=== PATIENT | female | born 1960 | race Caucasian/White ===

== ENCOUNTER 2016-03-30 06:23 | Day surgery (SDC) | payer OTHER ==
[2016-03-29 11:22] VITALS: Ht 160 cm; Wt 118.0 kg
[~2016-03-30] VITALS: Ht 160 cm; Wt 118.0 kg
[2016-03-30] VITALS (8 sets, daily range): BP systolic 110–135; BP diastolic 67–87; PULSE 80–86; RESP 14–18
[~2016-03-30 06:23] MED LIST: ALBU8.5H3 INH; BENZ100C70 PO; IBUP-1542 PO; NITR-58 PO; NO HOME RX MEDS
--- NOTE | 2016-03-30 07:09 | RADRPT ---
PROCEDURE: XR Chest. CLINICAL INDICATION: Preoperative evaluation prior to general anesthesia TECHNIQUE: Portable single view of the chest COMPARISON: 08/23/2015 FINDINGS: The heart size is top normal. Again seen is mild pulmonary vascular congestion without definite int erstitial or alveolar edema. No focal infiltrate or pleural effusion. IMPRESSION: Mild pulmonary vascular congestion. No significant interval change. RPTAT: [facility] Physician Michelle Date Time Electronically viewed and signed by Nadine Shields Physician on 03/30/2016 07:09 COY/
[2016-03-30] MEDS ORDERED: LIDOCAINE 1% (MDV) 20 ML INJ ONE (07:11)
[2016-03-30] MEDS ORDERED: IODIXANOL LOCM 100 ML BTL ONE (07:11)
[2016-03-30] MEDS ORDERED: HEPARIN 1000 UNITS/ML 10 ML INJ ONE (07:12)
[2016-03-30] MEDS ORDERED: VERAPAMIL 5 MG INJ ONE (07:12)
[2016-03-30] MEDS ORDERED: NITROGLYCERIN (IC) 100 MCG/ML INJ ONE (07:12)
[2016-03-30] MEDS ORDERED: FENTAnyl 50 MCG/ML VIAL ONE (07:46)
[2016-03-30] MEDS ORDERED: MIDAZOLAM 1 MG/ML 2 ML INJ ONE (07:46)
[2016-03-30 07:55] LABS: INR 0.97; PROTIME 12.9 Sec (12.2-14.2)
[2016-03-30 07:56] LABS: PARTIAL THROMBOPLASTIN TIME 28.1 Sec (25.0-35.0)
[2016-03-30 07:57] LABS: POTASSIUM 4.2 mmol/L (3.5-5.1)
[2016-03-30 08:01] LABS: CHOL/HDL RATIO 5.1 RATIO
[2016-03-30 08:10] LABS: BASOPHILS % 0.5 % (0.0-2.0); CALCIUM 9.2 mg/dl (8.4-10.2); CREATININE 0.51 mg/dl (0.44-1.00); EOSINOPHILS # 0.3 10^3/ul (0.0-0.5); EOSINOPHILS % 3.1 % (0.0-7.0); HEMOGLOBIN 14.7 g/dl (12.0-16.0); LYMPHOCYTES # 1.5 10^3/ul (0.8-2.9); LYMPHOCYTES % 15.4 % (15.0-51.0); MEAN CORPUSCULAR HEMOGLOBIN 28.7 pg (29.0-33.0); MEAN CORPUSCULAR HGB CONC 34.2 g/dl (32.0-37.0); MEAN CORPUSCULAR VOLUME 84.1 fl (82.0-101.0); MEAN PLATELET VOLUME 9.8 fl (7.4-10.4); MONOCYTE # 0.5 10^3/ul (0.3-0.9); MONOCYTES % 5.1 % (0.0-11.0); NEUTROPHIL # 7.2 10^3/ul (1.6-7.5); NEUTROPHILS % 75.9 % (39.0-77.0); PLATELET COUNT 274 10^3/UL (140-440); RED BLOOD COUNT 5.11 10^6/ul (4.20-5.40); RED CELL DISTRIBUTION WIDTH 13.3 % (11.5-14.5); UNCORRECTED WBC 9.4 10^3/ul (4.8-10.8); WHITE BLOOD COUNT 9.4 10^3/ul (4.8-10.8)
[2016-03-30 08:12] LABS: CONDITION 1
[2016-03-30] MEDS ORDERED: MECL-77 PO (08:34)
[2016-03-30] MEDS ORDERED: BENA5TAB2 PO (08:34)
[2016-03-30] MEDS ORDERED: ALBU18HF INHALATION (08:34)
[2016-03-30] MEDS ORDERED: GLIP-95 PO (08:34)
[2016-03-30] MEDS ORDERED: IBUP800T25 PO (08:34)
[2016-03-30] MEDS ORDERED: SITA50TA2 PO (08:34)
[2016-03-30] MEDS ORDERED: ONDA4TAB95 SUBLINGUAL (08:34)
[2016-03-30] MEDS ORDERED: SOD CHLORIDE 0.9% 1,000 ML IV SCH (10:16)
[2016-03-30] MEDS ORDERED: ONDANSETRON 4 MG INJ IV PRN (10:30)
[2016-03-30] MEDS ORDERED: ACETAMINOPHEN 325 MG TAB PO PRN (10:30)
[2016-03-30] MEDS ORDERED: HOLD all METFORMIN and METFORMIN CONTAINING medications for 48 hours post procedure. Chec XX SCH (10:30)
[2016-03-30] MEDS ORDERED: AL HYDROX/MG HYDROX/SIMETH 30 ML CUP PO PRN (10:30)
--- NOTE | 2016-03-30 11:17 | CARRPT ---
DATE OF PROCEDURE: 03/30/2016 TYPE OF PROCEDURE: 1. Left heart catheterization. 2. Coronary angiography. 3. Measurement of left ventricular end-diastolic pressure. ATTENDING PHYSICIAN: Deion Doty MD REFERRING PHYSICIAN: Rahul Horowitz MD TYPE OF ANESTHESIA: Conscious and local. INDICATION: Chest pain refractory to medical therapy with positive stress test findings for anterio r ischemia, high-risk marker for cardiovascular events. BRIEF HISTORY: Ms. Zambrano is a 55-year-old female with history of hypertension, diabetes mellitus w ho initially presented with complaints of substernal chest pain. The patient subsequently had a car diac stress test revealing positive ischemia. Given these findings, the patient referred for and pr esents today in order to undergo left heart catheterization to assess for the possibility of signifi cant obstructive coronary artery disease lending to her symptoms of chest pain and positive stress t est findings. PROCEDURE: After informed consent was obtained, the patient was brought to the [facility] cardiac catheterization lab where the right radial area was prepped and draped in the usual sterile fashion. Lidocaine 2% was infiltrated into the right radial area in order to achieve adequ ate anesthesia. Using the modified Seldinger technique, the patient's radial artery was cannulated and a 6 [place] arterial sheath was placed. A 6 [place] JR4 catheter was used to cannulate the right coronary arterial ostium. With contrast injection, multiple views of the right coronary arterial sy stem were obtained. JR4 was removed over a guidewire and a 6 [place] JL3 was used to finally success fully cannulate the patient's left coronary artery after which contrast injection, multiple views of the left coronary arterial system were obtained. JL3 was removed over a guidewire, and as the JR h ad initially been used to measure left ventricular end-diastolic pressure and pullback across the ao rtic valve to assess for significant gradient. This completed the procedure. The patient's sheath was removed. The TR band was applied. There were no noted complications. Left ventricular end-diastolic pressure measured at 16 to 17. No significant aortic stenosis by gra dient. FINDINGS: 1. Coronary angiography: Left main 4 mm, no significant stenoses. Circumflex proximally 3.5 mm ve ssel with 20% stenosis. The remainder of the circumflex is free of significant focal stenoses, give s off a very sizable 3.5 mm obtuse marginal with no significant focal stenoses. a very small ramus branch, sub 2 mm vessel with luminal irregularities up to 10% to 20%. The LAD proximally is a 3.5 mm vessel and has an ostial 20% stenosis and a mid body 20% stenosis. The remainder of LAD is free of significant focal stenoses and goes around the apex. A proximal branching diagonal 2 mm ves fouzia with no significant focal stenoses. The right coronary artery proximally is a 3 mm vessel and i s free of significant focal stenoses throughout its entirety. It is a dominant vessel and gives off a 2 mm PDA and a 2 mm posterolateral branch with no significant focal stenoses. TOTAL FLUOROSCOPY TIME: 11.7 minutes. TOTAL CONTRAST: 70 mL. IMPRESSION: 1. Very mild nonobstructive coronary artery disease. 2. High normal left heart filling pressure 16 to 17. 3. No significant aortic stenosis by gradient. RECOMMENDATIONS: In light of procedure findings at this time would: 1. Maximize medical management. 2. Aggressive risk factor reduction. 3. The patient will be readmitted to the same day surgery center for post-catheterization observati on with probable discharge later this afternoon. 4. The patient is scheduled for followup appointment in our office at which time we will discuss re sults of this test and ensure that the patient has had no post-catheterization complications. Dictated By: DEION QUACH/YASHIRA Conf#: [id number] DID#: [id number]
--- NOTE | 2016-03-30 13:35 | RADRPT ---
Vent Rate: 82 bpm RR Interval: 0 msec VA Interval: 118 msec QRS Duration: 88 msec QT Interval: 390 msec QTC Interval: 455 msec P-R-T [place]: 5 - 46 - 31 degrees Normal sinus rhythm Normal ECG Electronically Signed By: Sina Vasquez [id number]
== END 2016-03-30 15:05 | disposition home or self-care (01) ==
LOC: SDS 06:23
PROVIDERS: ATTEND Internal Medicine
DX: I25.10 Atherosclerotic heart disease of native coronary artery without angina pectoris (principal); R94.39 Abnormal result of other cardiovascular function study
CPT/HCPCS: 71010; 80048; 80061; 82962; 85025; 85610; 85730; 93005; 93458; C1769; C1887; J1644; J2250; J3010; Q9967; Z7610

== ENCOUNTER 2016-06-18 17:41 | Emergency (ER) | payer SELFPAY ==
[~2016-06-18] VITALS: Wt 81.0 kg
[~2016-06-18 17:41] MED LIST changes: +ALBU18HF INHALATION; +BENA5TAB2 PO; -BENZ100C70 PO; +GLIP-95 PO; -IBUP-1542 PO; +IBUP800T25 PO; +MECL-77 PO; -NITR-58 PO; -NO HOME RX MEDS; +ONDA4TAB95 SUBLINGUAL; +SITA50TA2 PO
== END 2016-06-18 20:23 | disposition left against medical advice (07) ==
LOC: FTE 17:41
DX: Z53.21 Procedure and treatment not carried out due to patient leaving prior to being seen by health care provider (principal)

== ENCOUNTER 2017-09-21 07:48 | Inpatient (IN) | END 2017-09-22 11:50 | disposition home health service (06) | DRG 418 ==

== ENCOUNTER 2018-05-01 07:09 | Day surgery (SDC) | payer OTHER ==
--- NOTE | 2018-04-27 22:21 | PREOPHP ---
DATE OF ADMISSION: 05/01/2018 The patient is coming for dilatation and curretage and hysteroscopy on 05/01/2018. HISTORY OF PRESENT ILLNESS: This is a 57-year-old female, 1, para 1 with a history of diabet es and postmenopausal bleeding. The patient has been referred to me for this reason. History of end ometrial hyperplasia also diagnosed 6 years ago at which time she was advised for the same procedure which she refused and the patient did not come since 10/2017. Now, she is still bleeding. She has b een losing weight but ultrasound shows it is strictly hyperplasia of the endometrium for which a D an d C and hysteroscopy will be performed to rule out malignancy and to see if this is perimenopausal sy ndrome. We can use the endometrial ablation, if there is no malignancy involved. If there is malign jody involved, then we will not perform any ablation of the endometrium. If there are fibroids in th e cavity of the uterus, we may use the TruClear machine to clear them up or sometimes both machine. The patient had been controlled on her diabetes, losing weight but this has not helped. Past history is for laparoscopic cholecystectomy in 2018, appendectomy, anal fistula. She stated that she had he r last period around 53. She also has been having diabetes that has been uncontrolled at times. The patient also with repeated infections in the bladder. ALLERGIES: SHE IS ALLERGIC TO CODEINE. MEDICATIONS: 1. She is on metformin. 2. Insulin shots. FAMILY HISTORY: Hypertension, breast cancer and diabetes. At this time, this procedure is diagnostic and will follow ablation if it is necessary with either shala kumar pending on the pathology results of the frozen section. PHYSICAL EXAMINATION: GENERAL APPEARANCE: Good. VITAL SIGNS: Stable. Blood pressure 120/90, pulse is 80, she is afebrile. She weighs 155, she is 5 feet 3 inches. HEAD AND NECK: Normal. BREASTS: Soft, nontender, no masses. CHEST: Clear. HEART: Normal sinus rhythm. LUNGS: Clear. ABDOMEN: Soft, nontender, no masses. PELVIC: The external genitalia is normal. Uterus retroverted, hard to examine due to her obesity. EXTREMITIES: Normal. DIAGNOSES: 1. Endometrial hyperplasia. 2. Postmenopausal bleeding. 3. Partially controlled diabetes. 4. Vaginal atrophy. 5. Recurrent urinary tract infection. 6. Moniliasis. PLAN: She is undergoing a fractional D and C, hysteroscopy, possible ablation of the uterus. She main s been advised of the possible risks and possible complications of the procedure with her alternative s and options. Written information was provided. She had no more questions and agreed to go ahead w ith the procedure with full understanding and no more questions. Dictated By: BUNNY SALDANA/YASHIRA Conf#: [id number] DID#: [id number]
[2018-04-29 15:58] VITALS: Ht 160 cm; Wt 109.7 kg
[~2018-05-01] VITALS: Ht 160 cm; Wt 109.7 kg
[2018-05-01] VITALS (14 sets, daily range): BP systolic 116–133; BP diastolic 61–71; PULSE 66–84; RESP 10–24
[~2018-05-01 07:09] MED LIST changes: +ACETAMINOPHEN 500 MG TAB PO ONE; -ALBU18HF INHALATION; -ALBU8.5H3 INH; +ALBU8.5H8 INH; +BENA40TA56 PO; -BENA5TAB2 PO; +BUME1TAB PO; +CEFAZOLIN 1 GM INJ ONE; +DESFLURANE 15 MIN ONE; +DOCU-144 PO; -GLIP-95 PO; +GLIP10TA14 PO; -IBUP800T25 PO; -MECL-77 PO; +MTF1000T PO; -ONDA4TAB95 SUBLINGUAL; +OXYC-279 PO; +PIOG30TA12 PO; +RANI300T PO; +SITA100T11 PO; -SITA50TA2 PO
[2018-05-01] MEDS ORDERED: METF100010 PO (07:35)
[2018-05-01] MEDS ORDERED: ASPI81TA52 PO (07:35)
[2018-05-01] MEDS ORDERED: PROVENTIL HFA 6.7GM INHALER ONE (08:41)
[2018-05-01] MEDS ORDERED: MIDAZOLAM 1 MG/ML 2 ML INJ ONE (08:48)
[2018-05-01] MEDS ORDERED: LIDOCAINE 2% (SDV) 5 ML INJ ONE (08:48)
[2018-05-01] MEDS ORDERED: PROPOFOL 40 ML ONE (08:48)
[2018-05-01] MEDS ORDERED: ROCURONIUM 50 MG INJ ONE (08:48)
[2018-05-01] MEDS ORDERED: SUCCINYLCHOLINE CHLORIDE 100 MG/5 ML SYG IV ONE (08:48)
[2018-05-01] MEDS ORDERED: FENTAnyl 50 MCG/ML VIAL ONE (08:48)
[2018-05-01] MEDS ORDERED: FAMOTIDINE 20 MG INJ ONE (08:49)
[2018-05-01] MEDS ORDERED: METOCLOPRAMIDE 10 MG INJ ONE (08:49)
--- NOTE | 2018-05-01 09:03 | PREAC ---
Date/Time of Note Date/Time of Note DATE: 05/01/18 TIME: 09:01 Anesthesia Eval and Record Evaluation Time Pre-Procedure Interview DATE: 05/01/18 TIME: 09:01 Age 57 Sex female NPO: 8 hrs Preoperative diagnosis endometrial hyperplasia Planned procedure fractionated d&c hysteroscopy Past Medical History Past Medical History: Includes Endo: Diabetes Pulm: Asthma GI: Morbid obesity Surgery & Anesthesia Issues No known issue Meds Anticoagulation: No Beta Daisha within 24 hr: No Reason Beta Daisha not given: Pt. not on B-Daisha Reported Medications Aspirin (Low Dose Aspirin) 81 Mg Tablet.dr, 81 MG PO DAILY, #30 TAB 05/01/18 Metformin Hcl* (Metformin Hcl*) 1,000 Mg Tablet, 1000 MG PO WITH BREAKFAST DINNE, #60 TAB 05/01/18 Discontinued Reported Medications Ranitidine Hcl* (Ranitidine Hcl*) 300 Mg Tablet, 300 MG PO HS, #30 TAB 09/20/17 Pioglitazone Hcl* (Actos*) 30 Mg Tablet, 30 MG PO DAILY, #30 TAB 09/20/17 Bumetanide* (Bumetanide*) 1 Mg Tablet, 1 MG PO DAILY, TAB 09/20/17 Metformin* (Glucophage*) 1,000 Mg Tablet, 1000 MG PO BID, #60 TAB 09/20/17 Sitagliptin* (Januvia*) 100 Mg Tablet, 100 MG PO DAILY, #30 TAB 09/20/17 Glipizide* (Glipizide*) 10 Mg Tablet, 10 MG PO BID, TAB 09/20/17 Benazepril Hcl* (Benazepril Hcl*) 40 Mg Tablet, 40 MG PO DAILY, #30 TAB 09/20/17 Discontinued Scripts Albuterol Sulfate* (Proair HFA*) 8.5 Gm Hfa.aer.ad, 2 PUFF INH Q4H PRN for WHEEZING AND SOB, #1 INHALER Prov:POON,REAGAN V. KEY MAKER 09/22/17 Docusate Sodium* (Colace*) 100 Mg Capsule, 100 MG PO BID, #60 CAP Prov:POON,REAGAN V. KEY MAKER 09/22/17 Oxycodone HCl/Acetaminophen (Percocet 5-325 mg Tablet) 1 Each Tablet, 1 EACH PO Q6, #30 TAB Prov:POON,REAGAN V. KEY MAKER 09/22/17 Meds reviewed: Yes Allergies Coded Allergies: codeine (Verified Allergy, Mild, 05/01/18) Allergies Reviewed: Yes Labs/Studies Labs Reviewed: Reviewed by anesthesiologist test: Negative Studies: CXR (no active dz) Pre-procedure Exam Last vitals Vital Signs Date Temp Pulse Resp B/P (MAP) Pulse Ox O2 O2 Flow FiO2 Time Delivery Rate 05/01/18 97.4 84 16 133/61 99 Room Air 07:58 (85) Airway: Adequate mouth opening, Adequate thyromental dist Mallampati: Mallampati II Teeth: Normal Lung: Normal Heart: Normal ASA Physical Status ASA physical status: 3 Emergency: None Planned Anesthetic General/MAC: LMA Pre-operative Attestations Prior to commencing anesthesia and surgery, the patient was re-evaluated, there was verification of: *The patient's identity *The results of appropriate recent lab work and preoperative vital signs *The above evaluation not changing prior to induction *Anesthetic plan, risk benefits, alternative and complications discussed with patient/family; questions answered; patient/family understands, accepts and wishes to proceed. ASHWIN STEINBERG May 01, 2018 09:03
[2018-05-01] MEDS ORDERED: morphine (1 MG/ML) 10ML SYRINGE IV PRN ×2 (09:30)
[2018-05-01] MEDS ORDERED: FENTAnyl 50 MCG/ML VIAL IV PRN ×2 (09:30)
[2018-05-01] MEDS ORDERED: HYDROmorphONE 1 MG/5 ML IV SYRINGE IV PRN ×2 (09:30)
[2018-05-01] MEDS ORDERED: DIPHENHYDRAMINE 50 MG INJ IV PRN (09:30)
[2018-05-01] MEDS ORDERED: MEPERIDINE 25 MG INJ IV PRN (09:30)
[2018-05-01] MEDS ORDERED: ALBUTEROL 0.083% (NEB) 2.5 MG/3 ML AMP HHN PRN (09:30)
[2018-05-01] MEDS ORDERED: LABETALOL HCL 20MG INJ IV PRN (09:30)
[2018-05-01] MEDS ORDERED: ONDANSETRON 4 MG INJ IV PRN (09:30)
--- NOTE | 2018-05-01 11:01 | PD.PPDC ---
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
--- NOTE | 2018-05-01 11:07 | PAC ---
Date/Time of Note Date/Time of Note DATE: 05/01/18 TIME: 11:06 Post-Anesthesia Notes Post-Anesthesia Note Last documented vital signs Vital Signs Date Temp Pulse Resp B/P Pulse Ox O2 O2 Flow FiO2 Time (MAP) Delivery Rate 05/01/18 97.4 98.1 84 69 16 16 133/61 99 100 Room 07:58 110 (85) 122 Air face mask 6L Activity: WNL Respiratory function: WNL Cardiovascular function: WNL Mental status: Baseline Pain reasonably controlled: Yes Hydration appropriate: Yes Nausea/Vomiting absent: Yes ASHWIN STEINBERG May 01, 2018 11:07
--- NOTE | 2018-05-01 11:09 | SIPON ---
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
--- NOTE | 2018-05-01 13:47 | RADRPT ---
Vent Rate: 77 bpm RR Interval: 776 msec HI Interval: 116 msec QRS Duration: 88 msec QT Interval: 410 msec QTC Interval: 465 msec P-R-T [place]: 51 - 69 - 58 degrees Sinus rhythm...normal P axis, V-rate 50- 99 Borderline short HI interval...HI int <120mS Abnormal T, consider ischemia, lateral leads...T <-0.20mV, I aVL V5 V6 ST elevation, consider inferior injury...ST >0.08mV, II III aVF Electronically Signed By: Sina Vasquez
--- NOTE | 2018-05-01 13:47 | OPR ---
DATE OF OPERATION: 05/01/2018 OPERATION PERFORMED: Fractional D and C, hysteroscopic ablation of endometrium and excision of endom etrial polyps. PREOPERATIVE DIAGNOSES: Endometrial hyperplasia, postmenopausal bleeding, diabetes, morbid obesity a nd recurrent UTI. POSTOPERATIVE DIAGNOSES: Endometrial hyperplasia, postmenopausal bleeding, diabetes, morbid obesity and recurrent UTI and endometrial polyps. SURGEON: Bunny Mccabe MD ANESTHESIA: General. ANESTHESIOLOGIST: Norma Marquez NP COMPLICATIONS: None. PROCEDURE: The patient was given general anesthesia, placed in the lithotomy position. The perineal and vaginal area were prepped and draped. Confirmatory examination under anesthesia revealed that t he uterus was small, retroverted. Adnexa were nonpalpable. The vaginal speculum was applied. The c ervix was held. The cervical endocervix was scraped, the uterus was sounded to a depth of 8 cm and t he cervix apparently is open. The TruClear hysteroscope was placed inside and visualization of the e ndometrium revealed that she had abundant multiple endometrial polyps. The working hysteroscope was used for an endometrial ablation of the polyps, which was done without complications. The ablation o f the endometrium was done and all the polyps were retrieved through the hysteroscope machine. The c avity was apparently clear. The procedure was finished. The patient tolerated the procedure well an d left the OR awake and stable. Sponge counts and instrument counts were correct. Intravenous antib iotics were given for prophylaxis. Blood loss was minimal and the urine was clear at the end of the procedure. Dictated By: BUNNY SALDANA/YASHIRA Conf#: [id number] DID#: [id number]
== END 2018-05-01 12:41 | disposition home or self-care (01) ==
LOC: SDS 07:09
PROVIDERS: ATTEND Obstetrics & Gynecology
DX: N84.0 Polyp of corpus uteri (principal); N95.0 Postmenopausal bleeding; E11.9 Type 2 diabetes mellitus without complications; E66.9 Obesity, unspecified; N39.0 Urinary tract infection, site not specified; R94.31 Abnormal electrocardiogram [ECG] [EKG]
CPT/HCPCS: 58558; 82962; 84703; 88305; 93005; J2250; J2405; J2765; J3010; Z7512; Z7610; J0690